=== PATIENT | female | born 1990 | race Caucasian/White ===

== ENCOUNTER 2017-04-14 15:47 | Emergency (ER) | payer MEDICAID ==
[~2017-04-14] VITALS: Ht 160 cm; Wt 89.0 kg
[~2017-04-14 15:47] MED LIST: LABE100T3 PO; PREN-39 PO
[2017-04-14 15:56] VITALS: Ht 160 cm; Wt 89.0 kg
--- NOTE | 2017-04-14 16:26 | ERA ---
ER Documentation Chief Complaint Date/Time DATE: 04/14/17 TIME: 16:26 Chief Complaint Pt with ARELLANO after fall 2 weeks ago from ladder, hx of subdural hematoma. HPI The patient is a 27-year-old female, presenting to the ER because of high blood pressure at the [facility] office. She was going to have her IUD removed, however the [facility] was unable to do that because of high blood pressure. She complains of minimal left-sided head discomfort after she fell after 3 feet ladder 2 weeks ago. She denies any syncope, near syncope, facial pain, neck pain, chest pain, dyspnea, abdominal pain, vomiting, dysuria, diarrhea. She does not smoke or drink Past medical history: History of subdural hematoma 5 years ago, status post craniotomy ROS All systems reviewed and are negative except as per history of present illness. Medications Home Meds Reported Medications Labetalol Hcl* (Labetalol Hcl*) 100 Mg Tablet, 100 MG PO 04/06/14 Vits W-Ca,Fe,Fa(<1MG) ( Vitamins) 1 Tab Tablet, 1 TAB PO DAILY 04/06/14 Allergies Allergies: Coded Allergies: No Known Allergies (Unverified Allergy, Unknown, 04/06/14) Physical Exam Vitals Vital Signs Date Time Temp Pulse Resp B/P Pulse Ox O2 Delivery O2 Flow Rate FiO2 04/14/17 18:19 88 14 144/96 97 Room Air 04/14/17 16:48 92 14 140/98 97 Room Air 04/14/17 15:56 97.8 103 14 193/108 97 Physical Exam Const: No acute distress. Head: Atraumatic. Eyes: Normal Conjunctiva. ENT: Normal External Ears, Nose and Mouth. Neck: Full range of motion. No meningismus. Resp: Clear to auscultation bilaterally. Cardio: Regular rate and rhythm, no murmurs. Abd: Soft, non distended, normal bowel sounds, non tender. Skin: No petechiae or rashes. Back: No midline or flank tenderness. Ext: No cyanosis, or edema. Neur: Awake and alert. No focal deficit Psych: Normal Mood and Affect. Procedures/MDM [place] [id number] Radiology Main Line: [phone] DIAGNOSTIC IMAGING REPORT Patient: OSMAR SIMS : 1990 Age: 27 Sex: F MR #: [id number] DOS: 04/14/17 1641 Ordering MD: CRYSTAL FALCON MD Location: E/R Room/Bed: PROCEDURE: CT Brain without contrast. CLINICAL INDICATION: Headache. TECHNIQUE: A CT of the brain was performed on a multi detector CT scanner utilizing axial imaging from the skull base through the vertex without intravenous contrast. Multiplanar reformatted images were made. The CTDIvol is 43.86 mGy and the DLP is 720.23 mGycm. One or the following dose reduction techniques were used: -Automated exposure control. -Adjustment of the mA and/or KV according to patient's size. -Use of iterative reconstruction technique. COMPARISON: None. FINDINGS: There is no intracranial hemorrhage, mass effect, or midline shift. No extra- axial fluid collection is seen. There is moderately severe diffuse cerebral and cerebellar volume loss with secondary enlargement of the lateral and fourth ventricles. The density of the brain is normal, and the blanco white matter differentiation appears well-preserved. The visualized paranasal sinuses and osseous structures are grossly unremarkable. IMPRESSION: 1. Moderately severe diffuse cerebral and cerebellar volume loss with secondary enlargement of the lateral and fourth ventricles. RPTAT:AACC Physician Valery Date Time Electronically viewed and signed by Physician Valery on 04/14/2017 18: 01 JH/ CC: CRYSTAL FALCON MD MEDICAL MAKING DECISION: The patient is a 27-year-old female, presenting to the ER because of left sided head discomfort after she fell 2 weeks ago. She is stable for outpatient follow-up The differential diagnoses considered include but are not limited to subarachnoid hemorrhage, occult trauma, CVA, meningitis, encephalitis, hypertension, tension, migraine, cluster, narcotic withdrawal, cervical spine disease. Departure Diagnosis: Primary Impression: Headache Condition: Good Comments I discussed the findings with the patient. I advised the patient to follow-up with the primary physician and the neurologist Dr. Patel in about 1-2 days, sooner if needed and return if any concern. The patient's blood pressure was elevated (>120/80) but appears stable without evidence of hypertension emergency or urgency. The patient was counseled about the risks of hypertension and urged to pursue outpatient monitoring and therapy within a week with their primary care physician. CRYSTAL FALCON MD April 14, 2017 16:26
--- NOTE | 2017-04-14 18:01 | RADRPT ---
PROCEDURE: CT Brain without contrast. CLINICAL INDICATION: Headache. TECHNIQUE: A CT of the brain was performed on a multi detector CT scanner utilizing axial imaging from the skull base through the vertex without intravenous contrast. Multiplanar reformatted images were made. The CTDIvol is 43.86 mGy and the DLP is 720.23 mGycm. One or the following dose reduction techniques were used: -Automated exposure control. -Adjustment of the mA and/or KV according to patient's size. -Use of iterative reconstruction technique. COMPARISON: None. FINDINGS: There is no intracranial hemorrhage, mass effect, or midline shift. No extra-axial fluid collection is seen. There is moderately severe diffuse cerebral and cerebellar volume loss with secondary enlar gement of the lateral and fourth ventricles. The density of the brain is normal, and the blanco white matter differentiation appears well-preserved. The visualized paranasal sinuses and osseous structur es are grossly unremarkable. IMPRESSION: 1. Moderately severe diffuse cerebral and cerebellar volume loss with secondary enlargement of the l ateral and fourth ventricles. RPTAT:AACC Physician Valery Date Time Electronically viewed and signed by Physician Valery on 04/14/2017 18:01 /
[2017-04-14 18:19] VITALS: BP 144/96; PULSE 88; RESP 14
== END 2017-04-14 18:45 | disposition home or self-care (01) ==
LOC: E/R 15:47
DX: R51 Headache (principal); R40.2142 Coma scale, eyes open, spontaneous, at arrival to emergency department; R40.2252 Coma scale, best verbal response, oriented, at arrival to emergency department; R40.2362 Coma scale, best motor response, obeys commands, at arrival to emergency department
CPT/HCPCS: 70450; Z7502

== ENCOUNTER 2017-05-29 15:31 | Emergency (ER) | payer MEDICAID ==
[~2017-05-29] VITALS: Ht 154.9 cm; Wt 89.0 kg
[2017-05-29 15:35] VITALS: Ht 154.9 cm; Wt 89.0 kg
[2017-05-29] MEDS ORDERED: NICARDipine HCL 30 MG CAPSULE PO ONE (16:30)
[2017-05-29] MEDS ORDERED: HYD25 PO (16:31)
[2017-05-29 17:15] VITALS: BP 158/94; PULSE 82; RESP 18; TEMP 98.6
--- NOTE | 2017-05-29 22:06 | ERD ---
ER Documentation Chief Complaint Date/Time DATE: 05/29/17 TIME: 22:01 Chief Complaint Sent from for eval Hypertension Hx of Subdural hemetoma HPI This patient is a 27-year-old female presenting to the emergency department after being sent by her primary medical doctor for evaluation of hypertension. The patient is completely asymptomatic currently. She was sent for further evaluation and possible treatment. She denies headache, dizziness, weakness, vision changes, hematuria, fevers, chills, or other symptoms currently. ROS All systems reviewed and are negative except as per history of present illness. Medications Home Meds Active Scripts Hydrochlorothiazide* (Hydrochlorothiazide*) 25 Mg Tab, 25 MG PO DAILY, #30 TAB Prov:TOMMY DUNN PA-C 05/29/17 Reported Medications Labetalol Hcl* (Labetalol Hcl*) 100 Mg Tablet, 100 MG PO 04/06/14 Vits W-Ca,Fe,Fa(<1MG) ( Vitamins) 1 Tab Tablet, 1 TAB PO DAILY 04/06/14 Allergies Allergies: Coded Allergies: No Known Allergies (Unverified Allergy, Unknown, 04/06/14) PMhx/Soc Medical and Surgical Hx: pt denies Surgical Hx Hx Miscellaneous Medical Probl: Yes (SUBDURAL HEMATOMA) Hx Alcohol Use: No Hx Substance Use: No Hx Tobacco Use: No Smoking Status: Never smoker FmHx Noncontributory for chief complaint Physical Exam Vitals Vital Signs Date Time Temp Pulse Resp B/P Pulse Ox O2 Delivery O2 Flow Rate FiO2 05/29/17 17:15 98.6 82 18 158/94 99 Room Air 05/29/17 15:35 98.5 93 20 178/97 99 Physical Exam Const: Nontoxic, well-appearing female in no acute distress. Head: Atraumatic Eyes: Normal Conjunctiva ENT: Normal External Ears, Nose and Mouth. Neck: Full range of motion..~ No meningismus. Resp: Clear to auscultation bilaterally Cardio: Regular rate and rhythm, no murmurs Abd: Soft, non tender, non distended. Normal bowel sounds Skin: No petechiae or rashes Back: No midline or flank tenderness Ext: No cyanosis, or edema Neur: Awake and alert Psych: Normal Mood and Affect. Cranial nerves are intact. No pronator drift. Negative Romberg's test. Results 24 hrs Laboratory Tests Test 05/29/17 16:58 Bedside Glucose 160mg/dL Current Medications Medications (Trade) Dose Ordered Sig/Mac Route PRN Reason Start Time Stop Time Status Last Admin Dose Admin Nicardipine HCl (Cardene) 30 mg ONCE ONCE PO 05/29/17 16:30 05/29/17 16:31 DC 05/29/17 16:41 Procedures/MDM 27-year-old female presenting to the emergency department for evaluation after visiting her primary medical doctor just prior to arrival. She was sent here for further evaluation and possible treatment of hypertension. On physical examination the patient's blood pressure is elevated at 178/97. The patient was given p.o. Cardene in the department and blood pressure lowered to 158/94. The remainder of the physical examination was benign and show no signs of neurological impairment. I have low suspicion for TIA, CVA, intracranial hemorrhage, intracranial mass, or other emergent conditions. I did not feel that the patient required a further workup in the department because her diagnosis is consistent with essential hypertension and she may be treated as an outpatient. The patient was given a prescription for p.o. hydrochlorothiazide 25 mg to be taken daily. She is to have very close follow- up with her primary care physician. Strict ER return precautions were discussed. I discussed this case with supervising physician, Dr. Abdulaziz Morgan, who agreed with the history, clinical examination, assessment, plan, and overall ED course. The patient was hemodynamically stable prior to discharge. Departure Diagnosis: Primary Impression: Hypertension Condition: Fair Patient Instructions: High Blood Pressure (Hypertension) Referrals: [facility] YOU HAVE RECEIVED A MEDICAL SCREENING EXAM AND THE RESULTS INDICATE THAT YOU DO NOT HAVE A CONDITION THAT REQUIRES URGENT TREATMENT IN THE EMERGENCY DEPARTMENT. FURTHER EVALUATION AND TREATMENT OF YOUR CONDITION CAN WAIT UNTIL YOU ARE SEEN IN YOUR DOCTORS OFFICE WITHIN THE NEXT 1-2 DAYS. IT IS YOUR RESPONSIBILITY TO MAKE AN APPOINTMENT FOR FOLOW-UP CARE. IF YOU HAVE A PRIMARY DOCTOR --you should call your primary doctor and schedule an appointment IF YOU DO NOT HAVE A PRIMARY DOCTOR YOU CAN CALL OUR PHYSICIAN REFERRAL HOTLINE AT IF YOU CAN NOT AFFORD TO SEE A PHYSICIAN YOU CAN CHOSE FROM THE FOLLOWING [facility] [address]. [facility] [address] [facility] [address] [facility] [address] [facility] [address] [facility]. [facility] [address] Additional Instructions: Follow up with your PCP within the next 1-3 days for a repeat evaluation and a possible referral to a specialist, if required. Return the the emergency department immediately if symptoms worsen or change. If you have any questions regarding medications, ask your pharmacist or us before you leave. If any adverse reactions, occur while taking your medications, discontinue the treatment and return to the emergency department immediately. If any new or worsening symptoms, uncontrolled fevers, or other unexplained symptoms occur, return to the emergency department immediately. Take your medications as directed, and complete the entire course of treatment. TOMMY DUNN PA-C May 29, 2017 22:06
== END 2017-05-29 17:21 | disposition home or self-care (01) ==
LOC: FTE 15:31
DX: I10 Essential (primary) hypertension (principal)
CPT/HCPCS: 82962; Z7610; 99283

== ENCOUNTER 2018-05-14 19:24 | Emergency (ER) | END 2018-05-14 23:03 | disposition home or self-care (01) ==